=== PATIENT | female | born 1970 | race American Indian/Alaskan Native ===

== ENCOUNTER 2018-09-11 12:41 | Emergency (ER) | payer SELFPAY ==
[2018-09-11 15:24] LABS: Hemoglobin 8.9 gm/dl (10.1-14.3); Mean Corpuscular HGB Conc 36 % (30-34); Platelet Count 163 K/mm3 (140-440); Red Blood Count 2.14 M/mm3 (3.65-5.03); Red Cell Distribution Width 17.8 % (13.2-15.2)
[2018-09-11 15:27] LABS: Mean Corpuscular Volume 117 fl (79-97)
[2018-09-11 15:37] LABS: BUN/Creatinine Ratio 30; Blood Urea Nitrogen 12 mg/dL (7-17); Calcium 8.6 mg/dL (8.4-10.2); Hemolysis Index 12
[2018-09-11 15:55] LABS: Eosinophils % (Manual) 0 % (0.0-4.3); Macrocytosis 1+; Total Cells Counted 100
--- NOTE | 2018-09-11 16:07 | Emergency Department Report ---
ED Chest Pain HPI - General Chief Complaint: Chest Pain Stated Complaint: CHEST PAIN Time Seen by Provider: 09/11/18 14:21 Source: patient Mode of arrival: Ambulatory Limitations: No Limitations - History of Present Illness Initial Comments: Mrs. Melgar is a pleasant 48-year-old female with history of anemia and thyroid disease status post thyroidectomy presents with chest pain for the past 2 days. She has persistent sharp midsternal chest pain constant. Pain is worse with inspiration. Moderate in nature. No association with exertion or shortness of breath. Denies leg pain. No use of oral contraceptive. She doesn't smoke tobacco. No recent travel. She has been under a lot of stress. She denies depression. However she's had a lot of emotional stress at home. No reported domestic violence. She states that she states feels safe at home. 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 No family history of cardiac disease. MD Complaint: chest pain -: Gradual, days(s) (2) Onset: during rest Pain Location: substernal Pain Radiation: none Severity: moderate Quality: sharp Consistency: constant Improves With: nothing Worsens With: inspiration - Related Data Allergies Allergy/AdvReac Type Severity Reaction Status Date / Time aspirin Allergy Hives Verified 09/11/18 12:43 Penicillins Allergy Dizziness Verified 09/11/18 12:43 Heart Score - HEART Score History: Slightly suspicious EKG: Normal Age: 45-65 Risk factors: No known risk factors Troponin: < normal limit HEART Score: 1 ED Review of Systems ROS: Stated complaint: CHEST PAIN Other details as noted in HPI Comment: All other systems reviewed and negative Constitutional: denies: fever, malaise Respiratory: denies: shortness of breath Cardiovascular: chest pain Gastrointestinal: denies: abdominal pain, nausea, vomiting ED Past Medical Hx - Past Medical History Previous Medical History?: Yes Additional medical history: Hypothyroid - Surgical History Additional Surgical History: throidectomy - Family History Family history: diabetes - Social History Smoking Status: Never Smoker Substance Use Type: None ED Physical Exam - General Limitations: No Limitations General appearance: alert, in no apparent distress - Head Head exam: Present: atraumatic, normocephalic - Eye Eye exam: Present: normal appearance - ENT ENT exam: Present: mucous membranes moist - Neck Neck exam: Present: normal inspection, full ROM - Respiratory Respiratory exam: Present: normal lung sounds bilaterally. Absent: respiratory distress, wheezes, rales, rhonchi - Cardiovascular Cardiovascular Exam: Present: regular rate, normal rhythm, normal heart sounds. Absent: systolic murmur, diastolic murmur, rubs, gallop - GI/Abdominal GI/Abdominal exam: Present: soft, normal bowel sounds. Absent: distended, tenderness, guarding, rebound - Extremities Exam Extremities exam: Present: normal inspection - Back Exam Back exam: Present: normal inspection - Neurological Exam Neurological exam: Present: alert, oriented X3 - Psychiatric Psychiatric exam: Present: normal affect, normal mood - Skin Skin exam: Present: warm, dry, intact, normal color. Absent: rash ED Medical Decision Making - Lab Data Result diagrams: 09/11/18 14:53 09/11/18 14:53 - EKG Data EKG shows normal: sinus rhythm, axis, intervals, QRS complexes, ST-T waves Rate: normal - Radiology Data Radiology results: image reviewed Chest x-ray according to my review: No infiltrate and no pneumothorax, normal cardiac silhouette, normal mediastinum and no acute process. Normal chest radiograph - Medical Decision Making Mrs. Melgar presents with atypical low risk acute coronary syndrome heart score 1, negative for pulmonary embolism. Discharged with referral to dough maker. Stress at home is a contributing factor. Critical care attestation.: If time is entered above; I have spent that time in minutes in the direct care o f this critically ill patient, excluding procedure time. ED Disposition Clinical Impression: Chest pain Disposition: DC-01 TO HOME OR SELFCARE Is pt being admited?: No Does the pt Need Aspirin: No Condition: Stable Instructions: Chest Pain (ED) Referrals: ESE FRENCH MD [Staff Physician] - [place] Forms: Work/School Release Form(ED)
--- NOTE | 2018-09-11 16:18 | XRay Report ---
CHEST 1 VIEW INDICATION: Chest pain for one day. COMPARISON: None FINDINGS: Support devices: None. Heart: Within normal limits. Lungs/Pleura: No acute air space or interstitial disease. Additional findings: None. IMPRESSION: No acute findings. Signer Name: Kerwin Lopez Jr, MD Signed: 09/11/2018 4:14 PM Workstation Name: [id number]
== END 2018-09-11 16:23 | disposition home or self-care (01) ==
LOC: ED 12:41
DX: R07.2 Precordial pain (principal); E03.9 Hypothyroidism, unspecified; E89.0 Postprocedural hypothyroidism; Z88.4 Allergy status to anesthetic agent; Z88.0 Allergy status to penicillin
CPT/HCPCS: 36415; 71045; 80048; 84484; 85007; 85025; 93005; 93010

== ENCOUNTER 2018-09-26 10:20 | Emergency (ER) | payer SELFPAY ==
[2018-09-26 11:18] LABS: Hematocrit 25.4 % (30.3-42.9); Hemoglobin 8.6 gm/dl (10.1-14.3); Mean Corpuscular HGB Conc 34 % (30-34); Mean Corpuscular Volume 121 fl (79-97); Platelet Count 319 K/mm3 (140-440); Red Blood Count 2.09 M/mm3 (3.65-5.03); Red Cell Distribution Width 19.4 % (13.2-15.2)
[2018-09-26 11:41] LABS: BUN/Creatinine Ratio 30; Blood Urea Nitrogen 12 mg/dL (7-17); Calcium 8.5 mg/dL (8.4-10.2); Hemolysis Index 71
--- NOTE | 2018-09-26 11:45 | XRay Report ---
PA AND LATERAL CXR HISTORY: Chest pain. COMPARISON: 09/11/2018 FINDINGS: Cardiomediastinal silhouette: Normal cardiac size. Normal mediastinal contours. Lungs: Normal expansion. Normal lung aeration. No pleural effusions. No pneumothorax. Pulmonary vascularity: Normal. Support hardware: None. Additional findings: None. IMPRESSION: Normal chest. Signer Name: Francisco J Teresa MD Signed: 09/26/2018 11:40 AM Workstation Name: [id number]
[2018-09-26 11:54] LABS: Basophils % (Manual) 0 % (0.0-1.8); Macrocytosis 2+; Total Cells Counted 100
[2018-09-26 11:55] LABS: Platelet Estimate Consistent w Auto
--- NOTE | 2018-09-26 11:59 | Emergency Department Report ---
ED Chest Pain HPI - General Chief Complaint: Chest Pain Stated Complaint: D/V RT LEG PAIN Time Seen by Provider: 09/26/18 11:45 Source: patient Mode of arrival: Ambulatory Limitations: No Limitations - History of Present Illness Initial Comments: 48-year-old female with history of anemia presents to ED with constant, left- sided chest pain since yesterday. Patient states pain feels like a "sticking" sensation. States she lifted a box yesterday at work which may be the cause of the pain. Pain is worse with palpation. She also reports associated dizziness, nausea and vomiting. Patient states she had a cramp in her right leg earlier this morning in which her toes were contracted, which has resolved. Denies any diaphoresis, shortness of breath, leg swelling, fever, cough. Patient was seen approximately 2 weeks ago for same symptoms. States she was referred to a entry level administrative assistant, but unable to follow due to not having insurance at the moment MD Complaint: chest pain -: days(s) (1) Onset: during rest Pain Location: left chest Pain Radiation: none Severity: moderate Severity scale (0 -10): 8 Quality: other ("sticking") Consistency: constant Improves With: nothing Worsens With: nothing re: nausea, vomting. denies: diaphoresis, dyspnea Other Symptoms: denies: cough, fever, leg swelling - Related Data Allergies Allergy/AdvReac Type Severity Reaction Status Date / Time aspirin Allergy Hives Verified 09/11/18 12:43 Penicillins Allergy Dizziness Verified 09/11/18 12:43 Heart Score - HEART Score History: Slightly suspicious EKG: Normal Age: 45-65 Risk factors: No known risk factors Troponin: < normal limit HEART Score: 1 ED Review of Systems ROS: Stated complaint: D/V RT LEG PAIN Other details as noted in HPI Comment: All other systems reviewed and negative Constitutional: denies: chills, fever Respiratory: denies: cough, shortness of breath Cardiovascular: chest pain Gastrointestinal: nausea, vomiting Musculoskeletal: other (denies leg swelling) ED Past Medical Hx - Past Medical History Previous Medical History?: Yes Additional medical history: Hypothyroid - Surgical History Past Surgical History?: Yes Additional Surgical History: throidectomy - Social History Smoking Status: Never Smoker Substance Use Type: None ED Physical Exam - General Limitations: No Limitations General appearance: alert, in no apparent distress - Head Head exam: Present: atraumatic, normocephalic - Eye Eye exam: Present: normal appearance, PERRL, EOMI - ENT ENT exam: Present: mucous membranes moist - Neck Neck exam: Present: normal inspection - Respiratory Respiratory exam: Present: normal lung sounds bilaterally, chest wall tenderness. Absent: respiratory distress - Cardiovascular Cardiovascular Exam: Present: regular rate, normal rhythm - GI/Abdominal GI/Abdominal exam: Present: soft. Absent: distended, tenderness - Extremities Exam Extremities exam: Present: normal inspection. Absent: pedal edema, calf tenderness - Neurological Exam Neurological exam: Present: alert, oriented X3 - Psychiatric Psychiatric exam: Present: normal affect, normal mood - Skin Skin exam: Present: warm, dry, intact, normal color ED Course Vital Signs 09/26/18 09/26/18 09/26/18 10:25 11:50 11:58 Temperature 97.7 F 97.9 F Pulse Rate 81 81 Respiratory 20 16 16 Rate Blood Pressure 124/81 Blood Pressure 113/74 [Left] O2 Sat by Pulse 96 100 100 Oximetry 09/26/18 09/26/18 12:53 13:19 Temperature Pulse Rate 77 86 Respiratory Rate Blood Pressure Blood Pressure 121/82 [Left] O2 Sat by Pulse Oximetry ED Medical Decision Making - Lab Data Result diagrams: 09/26/18 11:07 09/26/18 10:59 - EKG Data -: EKG Interpreted by Nm EKG shows normal: sinus rhythm, axis, intervals, QRS complexes, ST-T waves Rate: normal - EKG Data Interpretation: no acute changes, normal EKG - Radiology Data Radiology results: report reviewed, image reviewed - Medical Decision Making 48-year-old female presents to ED with chest pain since yesterday. EKG, troponin normal 2. D-dimer slightly elevated so VQ scan obtained due to IV access. VQ scan is low probability for PE. Vitals are normal. Patient in no respiratory distress. Patient appears nontoxic. Has been talking to her cell phone throughout her stay. Patient reported nausea and vomiting, however patient tolerated by mouth, as she was eating [employer] peanut butter cups in her stretcher. Outpatient follow-up advised, return precautions given. Will discharge at this time. - Differential Diagnosis ACS, chest wall pain, PE Critical care attestation.: If time is entered above; I have spent that time in minutes in the direct care of this critically ill patient, excluding procedure time. ED Disposition Clinical Impression: Chest pain, Costochondritis, acute Disposition: DC-01 TO HOME OR SELFCARE Is pt being admited?: No Condition: Stable Instructions: Chest Pain (ED), Costochondritis (ED) Referrals: ARISTIDES BRADLEY MD [Primary Care Provider] - 3-5 Days Forms: Work/School Release Form(ED) Time of Disposition: 14:53
[2018-09-26 13:24] LABS: INR 0.98 (0.87-1.13); Partial Thromboplastin Time 20.5 Sec. (24.2-36.6)
[2018-09-26 13:25] VITALS: BP 121/82
--- NOTE | 2018-09-26 14:45 | Nuclear Medicine Report ---
VENTILATION PERFUSION PULMONARY SCINTIGRAPHY HISTORY: Chest pain, shortness of breath COMPARISON: 09/26/2018 chest radiograph. TECHNIQUE: Radiopharmaceutical was inhaled. Tc-99m-MAA was then injected. Ventilation and perfusion images were acquired. RADIOPHARMACEUTICAL: 15 mCi of Xe-[id number] inhaled 5 mCi of Tc-99m-MAA injected FINDINGS: VENTILATION: No significant air trapping or defect. PERFUSION: No significant segmental or non-segmental defect. Additional Findings: None. IMPRESSION: 1. Low probability for pulmonary embolism. Signer Name: Kerwin Lopez Jr, MD Signed: 09/26/2018 2:41 PM Workstation Name: [id number]
== END 2018-09-26 15:30 | disposition home or self-care (01) ==
LOC: ED 10:20
DX: M94.0 Chondrocostal junction syndrome [Tietze] (principal); Z90.89 Acquired absence of other organs; Z88.6 Allergy status to analgesic agent; Z88.0 Allergy status to penicillin
CPT/HCPCS: 36415; 71046; 78582; 80048; 84484; 85007; 85025; 85379; 85610; 85730; 93005; 93010; 99284; A9540; A9558